=== PATIENT | male | born 1935 | race Hispanic/Latino ===

== ENCOUNTER 2020-04-18 21:04 | Inpatient (IN) | payer MEDICARE, OTHER ==
[~2020-04-18] VITALS: Ht 170.2 cm; Wt 55.5 kg
[2020-04-18 21:26] LABS: BASOPHILS % 0.2 % (0.0-1.0); HEMATOCRIT 41.8 % (38.2-49.6); HEMOGLOBIN 13.6 g/dL (14.0-18.0); LYMPHOCYTES # (AUTO) 1.9 (1.0-3.2); MEAN CORPUSCULAR HEMOGLOBIN 30.2 pg (28-32); MEAN CORPUSCULAR HGB CONC 32.5 g/dL (31-35); MEAN CORPUSCULAR VOLUME 92.7 fL (81-99); MONOCYTES % 12.1 % (4.4-11.3); NEUTROPHILS # (AUTO) 5.1 (2.1-6.9); NEUTROPHILS % 63.3 % (38.7-80.0); PLATELET COUNT 206 x10e3/uL (140-360); RED BLOOD COUNT 4.51 x10e6/uL (4.3-5.7); RED CELL DISTRIBUTION WIDTH 14.5 % (11.7-14.4)
--- NOTE | 2020-04-18 21:31 | Emergency Department Note ---
History of Present Illnes History of Present Illness Chief Complaint: COVID PUI History of Present Illness This is a 84 year old male who [facility] status. Per EMS nursing staff found pt down him down on the floor for unknown period of time. Patient unable to provide history Onset (how long ago): unknown Onset quality: unable to specify Progression: unable to specify Relieving factors: none Exacerbating factors: none Past Medical/Family History Physician Review I have reviewed the patient's past medical and family history. Any updates have been documented here. Past Medical History Unable to obtain PMH: Unable to obtain due to, altered mental status Other Medical History: Per EMS all of [place] has positive covid patients Social History Smoking Cessation: Unknown if ever smoked Review of Systems ROS Narrative Unable to obtain ROS: Unable to obtain due to, altered mental status Review of Systems Neurological: Reports as per HPI Endocrine: Reports no symptoms Physical Exam Related Data Allergies: Coded Allergies: No Known Allergies (Unverified , 04/18/20) Vital signs reviewed: Yes Physical Exam CONSTITUTIONAL Constitutional: Present well-developed, Present well-nourished HENT HENT: Present normocephalic, Present atraumatic, Present oropharynx clear/moist, Present nose normal HENT L/R: Present left ext ear normal, Present right ext ear normal EYES Eyes: Reports PERRL, Reports conjunctivae normal NECK Neck: Present ROM normal PULMONARY Pulmonary: Present effort normal, Present breath sounds normal CARDIOVASCULAR Cardiovascular: Present regular rhythm, Present heart sounds normal, Present capillary refill normal, Present normal rate GASTROINTESTINAL Abdominal: Present soft, Present nontender, Present bowel sounds normal GENITOURINARY Genitourinary: Present exam deferred SKIN Skin: Present warm, Present dry MUSCULOSKELETAL Musculoskeletal: Present ROM normal NEUROLOGICAL Neurological: Present alert, Present no gross motor or sensory deficits; Absent oriented x 3 PSYCHOLOGICAL Psychological: Present judgement normal Results Laboratory Laboratory Laboratory Tests Test 04/18/20 23:30 04/18/20 22:58 04/18/20 21:53 04/18/20 21:14 Urine Color Yellow (YELLOW) Urine Clarity Clear (CLEAR) Urine pH 6 (5 - 7) Urine Specific [place] 1.025 (1.010-1.025) Urine Protein Negative (NEGATIVE) Urine Glucose (UA) Negative (NEGATIVE) Urine Ketones 2+ (NEGATIVE) Urine Blood Negative (NEGATIVE) Urine Nitrite Negative (NEGATIVE) Urine Bilirubin Negative (NEGATIVE) Urine Urobilinogen 4.0 mg/dL (0.2 - 1) Urine Leukocyte Esterase Negative (NEGATIVE) Urine RBC 0-5 /HPF (0-5) Urine WBC 0-5 /HPF (0-5) Urine Epithelial Cells Few /LPF (NONE) Urine Amorphous Sediment Few (FEW) Urine Bacteria Few /HPF (NONE) Prothrombin Time 13.3 seconds (11.9-14.5) Prothromb Time International Ratio 0.96 White Blood Count 8.04 x10e3/uL (4.8-10.8) Red Blood Count 4.51 x10e6/uL (4.3-5.7) Hemoglobin 13.6 g/dL (14.0-18.0) Hematocrit 41.8 % (38.2-49.6) Mean Corpuscular Volume 92.7 fL (81-99) Mean Corpuscular Hemoglobin 30.2 pg (28-32) Mean Corpuscular Hemoglobin Concent 32.5 g/dL (31-35) Red Cell Distribution Width 14.5 % (11.7-14.4) Platelet Count 206 x10e3/uL (140-360) Neutrophils (%) (Auto) 63.3 % (38.7-80.0) Lymphocytes (%) (Auto) 24.0 % (18.0-39.1) Monocytes (%) (Auto) 12.1 % (4.4-11.3) Eosinophils (%) (Auto) 0.0 % (0.0-6.0) Basophils (%) (Auto) 0.2 % (0.0-1.0) Neutrophils # (Auto) 5.1 (2.1-6.9) Lymphocytes # (Auto) 1.9 (1.0-3.2) Monocytes # (Auto) 1.0 (0.2-0.8) Eosinophils # (Auto) 0.0 (0.0-0.4) Basophils # (Auto) 0.0 (0.0-0.1) Absolute Immature Granulocyte (auto 0.03 x10e3/uL (0-0.1) Sodium Level 137 mmol/L (136-145) Potassium Level 3.7 mmol/L (3.5-5.1) Chloride Level 109 mmol/L (98-107) Carbon Dioxide Level 22 mmol/L (22-29) Anion Gap 9.7 mmol/L (8-16) Blood Urea Nitrogen 31 mg/dL (7-26) Creatinine 1.01 mg/dL (0.72-1.25) Estimat Glomerular Filtration Rate > 60 ML/MIN (60-) BUN/Creatinine Ratio 31 (6-25) Glucose Level 91 mg/dL (74-118) Calcium Level 9.1 mg/dL (8.4-10.2) Total Bilirubin 0.5 mg/dL (0.2-1.2) Aspartate Amino Transf (AST/SGOT) 61 IU/L (5-34) Alanine Aminotransferase (ALT/SGPT) 27 IU/L (0-55) Alkaline Phosphatase 57 IU/L (40-150) Creatine Kinase 2352 IU/L (30-200) Creatine Kinase MB 3.70 ng/mL (0-5.0) Troponin I 0.049 ng/mL (0-0.300) Total Protein 6.4 g/dL (6.5-8.1) Albumin 3.3 g/dL (3.5-5.0) Globulin 3.1 g/dL (2.3-3.5) Albumin/Globulin Ratio 1.1 (0.8-2.0) Lab results reviewed: Yes Imaging Imaging results reviewed: Yes Impressions IMPRESSION: Mild left basilar atelectasis. Otherwise, no lung consolidation. Severe atherosclerotic calcification of coronary arteries. Assessment & Plan Medical Decision Making MDM 84-year-old male unable to provide history secondary to altered mental status sent to the ER after being found down per shelter staff. Patient with no focal neuro deficits on exam. CT brain done shows no acute findings. Patient noted to have elevated CPK was concerns of rhabdomyolysis. Patient admitted for monitoring and IV fluids. No concerns of infectious etiology at time of admission. Assessment & Plan Final Impression: (1) Rhabdomyolysis Depart Disposition: ADMITTED DELPHINEChelsea DO BRYAN Apr 18, 2020 21:30
[2020-04-18 21:39] LABS: ALANINE AMINOTRANSFERASE 27 IU/L (0-55); ALBUMIN 3.3 g/dL (3.5-5.0); ALBUMIN/GLOBULIN RATIO 1.1 (0.8-2.0); ALKALINE PHOSPHATASE 57 IU/L (40-150); ANION GAP 9.7 mmol/L (8-16); BLOOD UREA NITROGEN 31 mg/dL (7-26); BUN/CREATININE RATIO 31 (6-25); CALCIUM 9.1 mg/dL (8.4-10.2); CARBON DIOXIDE 22 mmol/L (22-29); CHLORIDE 109 mmol/L (98-107); CREATINE KINASE 2352 IU/L (30-200); CREATININE, SERUM 1.01 mg/dL (0.72-1.25); EST GLOMERULAR FILTRATION RATE > 60 ML/MIN (60-); GLUCOSE 91 mg/dL (74-118); POTASSIUM 3.7 mmol/L (3.5-5.1); SODIUM 137 mmol/L (136-145)
[2020-04-18] MEDS ORDERED: SODIUM CHLORIDE 0.9% 1000ML 1,000 ML IV ONE (21:45)
[2020-04-18 22:10] LABS: INR 0.96; PROTHROMBIN TIME 13.3 seconds (11.9-14.5)
--- NOTE | 2020-04-18 23:00 | Diagnostic Imaging Report ---
EXAM: CT Chest WITHOUT contrast INDICATION: ^[id number] ^0 ^WEAKNESS, FEVER COMPARISON: None TECHNIQUE: Chest was scanned utilizing a multidetector helical scanner from the lung apex through the level of the adrenal glands without administration of IV contrast. Absence of intravenous contrast decreases sensitivity for detection of lymphadenopathy and vascular pathology. Coronal and sagittal reformations were obtained. Routine protocol was performed. IV CONTRAST: None COMPLICATIONS: None RADIATION DOSE: Total DLP: 1301.63 mGy*cm Estimated effective dose: (DLP x 0.014 x size factor) mSv CTDIvol has been reviewed. It is below the limits set by the Radiation Protocol Committee (RPC). FINDINGS: LINES/ TUBES: None. LUNGS AND AIRWAYS: Respiratory motion limits evaluation. Mild left basilar atelectasis. Airways are normal. PLEURA: The pleural spaces are clear. HEART AND MEDIASTINUM: The thyroid gland is normal. No mediastinal, hilar or axillary lymphadenopathy. The heart is normal in size.. There is no pericardial effusion. There are significant atherosclerotic calcifications in the aorta and coronary arteries. Severe atherosclerotic calcification of coronary arteries. UPPER ABDOMEN: Unremarkable. BONES: Degenerative changes of thoracic spine. SOFT TISSUES: Unremarkable. IMPRESSION: Mild left basilar atelectasis. Otherwise, no lung consolidation. Severe atherosclerotic calcification of coronary arteries. Signed by: Dr. Arthur Frost MD on 04/18/2020 10:56 PM
[2020-04-18 23:02] LABS: CLARITY,URINE CLEAR (CLEAR); COLOR,URINE YELLOW (YELLOW); LEUKOCYTE ESTERASE ,URINE NEGATIVE (NEGATIVE); NITRITE,URINE NEGATIVE (NEGATIVE)
--- NOTE | 2020-04-18 23:02 | Diagnostic Imaging Report ---
Examination: CT head without contrast Clinical Indication: Altered mental status; weakness; confusion. Technique: Transaxial noncontrast images from the skull base through the vertex were obtained. Sagittal and coronal reformatted images were done. Dose modulation, iterative reconstruction, and/or weight based adjustment of the mA/kV was utilized to reduce the radiation dose to as low as reasonably achievable. Comparison: None. Findings: Scalp: No abnormalities. Bones: Intact. No fractures. No blastic or lytic lesions. Brain sulci: Moderate volume loss for patient's age. Ventricles: No hydrocephalus. Extra-axial space: No abnormalities. Parenchyma: There are confluent areas of low-attenuation within subcortical and periventricular white matter, nonspecific, but could represent microvascular ischemic disease. No masses, hemorrhage, or acute or chronic cortical based vascular insults. Suprasellar region: No abnormalities. Craniocervical junction: The foramen magnum is patent. No Chiari one malformation. Impression: 1. No acute intracranial finding. 2. Chronic microvascular ischemic change and volume loss. Signed by: Dr. Dilma Acharya M.D. on 04/18/2020 10:58 PM
[2020-04-18 23:03] LABS: BILIRUBIN,URINE NEGATIVE (NEGATIVE); KETONES,URINE 2+ (NEGATIVE); PROTEIN,URINE DIPSTICK NEGATIVE (NEGATIVE)
[2020-04-18 23:10] LABS: AMORPHOUS SEDIMENT,URINE FEW (FEW); BACTERIA,URINE FEW /HPF; EPITHELIAL CELLS,URINE FEW /LPF; RBC,URINE 0-5 /HPF (0-5); WBC,URINE (MAN) 0-5 /HPF (0-5)
[2020-04-19] VITALS (9 sets, daily range): BP systolic 120–128; BP diastolic 56–68
[2020-04-19] MEDS: SODIUM CHLORIDE 0.9% 1000ML 1,000 ML IV SCH ×4 (00:33→23:00)
--- NOTE | 2020-04-19 04:18 | NUR ---
Patient admitted to unit from ER. Patient transferred to bed. Call light within reach. Teaching provided on pain and fall/safety.
[2020-04-19] MEDS ORDERED: KEPPRA500 MG PO (05:09)
[2020-04-19] MEDS ORDERED: CALCIUM CARBON500 MG PO (05:09)
[2020-04-19] MEDS ORDERED: FINASTERIDE5 MG PO (05:09)
[2020-04-19] MEDS ORDERED: OLANZAPINE5 MG PO (05:09)
[2020-04-19] MEDS ORDERED: NAMENDA10 MG PO (05:09)
[2020-04-19] MEDS ORDERED: FLOMAX0.4 MG PO (05:09)
[2020-04-19] MEDS ORDERED: LOPRESSOR25 MG PO (05:09)
[2020-04-19] MEDS ORDERED: ARICEPT5 MG PO (05:09)
[2020-04-19] MEDS ORDERED: [UNRECOGNIZED DRUG - CODE] TOP (05:09)
[2020-04-19] MEDS ORDERED: ALPRAZOLAM1 MG PO (05:09)
--- NOTE | 2020-04-19 06:57 | NUR ---
Bedside and report and walking rounds completed with oncoming nurse. Patient in bed with call light within reach. No issues or concerns noted.
[2020-04-19 07:37] LABS: BASOPHILS % 0.2 % (0.0-1.0); HEMATOCRIT 35.9 % (38.2-49.6); HEMOGLOBIN 11.7 g/dL (14.0-18.0); LYMPHOCYTES # (AUTO) 1.6 (1.0-3.2); MEAN CORPUSCULAR HEMOGLOBIN 30.5 pg (28-32); MEAN CORPUSCULAR HGB CONC 32.6 g/dL (31-35); MEAN CORPUSCULAR VOLUME 93.7 fL (81-99); MONOCYTES # (AUTO) 0.7 (0.2-0.8); MONOCYTES % 12.1 % (4.4-11.3); NEUTROPHILS # (AUTO) 3.1 (2.1-6.9); NEUTROPHILS % 57.3 % (38.7-80.0); PLATELET COUNT 177 x10e3/uL (140-360); RED BLOOD COUNT 3.83 x10e6/uL (4.3-5.7); RED CELL DISTRIBUTION WIDTH 14.4 % (11.7-14.4)
[2020-04-19 07:55] LABS: ALANINE AMINOTRANSFERASE 22 IU/L (0-55); ALBUMIN 2.6 g/dL (3.5-5.0); ALKALINE PHOSPHATASE 45 IU/L (40-150); ANION GAP 9.5 mmol/L (8-16); BLOOD UREA NITROGEN 24 mg/dL (7-26); BUN/CREATININE RATIO 31 (6-25); CALCIUM 7.8 mg/dL (8.4-10.2); CARBON DIOXIDE 21 mmol/L (22-29); CHLORIDE 112 mmol/L (98-107); CREATININE, SERUM 0.77 mg/dL (0.72-1.25); EST GLOMERULAR FILTRATION RATE > 60 ML/MIN (60-); GLUCOSE 76 mg/dL (74-118); POTASSIUM 3.5 mmol/L (3.5-5.1); SODIUM 139 mmol/L (136-145)
[2020-04-19 08:19] LABS: CREATINE KINASE MB 3.1 ng/mL (0-5.0)
[2020-04-19] MEDS ORDERED: ONDANSETRON HCL INJ 2MG/ML 2ML 2 MG/ML VIAL IV PRN (14:00)
[2020-04-19] MEDS ORDERED: DOCUSATE SODIUM 100 MG CAP PO PRN (14:00)
[2020-04-19] MEDS ORDERED: ACETAMINOPHEN 325 MG TAB PO PRN (14:00)
[2020-04-19 16:27] LABS: CREATINE KINASE MB 3.2 ng/mL (0-5.0)
[2020-04-19] MEDS: LEVETIRACETAM 500 MG TAB PO SCH (18:10)
[2020-04-19] MEDS ORDERED: QUETIAPINE FUMARATE 25 MG TAB PO ONE (19:50)
--- NOTE | 2020-04-19 22:00 | NUR ---
Nursing can initiate 1:1, if patient continues be aggressive. patient has a temporary sitter now
[2020-04-19] MEDS: MEMANTINE 10 MG TAB PO SCH (22:08)
[2020-04-19] MEDS: DONEPEZIL HCL 5 MG TAB PO SCH (22:08)
[2020-04-20] VITALS (12 sets, daily range): BP systolic 112–192; BP diastolic 60–148
--- NOTE | 2020-04-20 02:08 | History and Physical ---
The patient was seen and evaluated approximately 1:30 p.m. this afternoon with the nursing staff. CHIEF COMPLAINT: Rhabdomyolysis. HISTORY OF PRESENT ILLNESS: Information currently being obtained from the nursing staff and chart. The patient is severely demented. He is currently at his baseline. We have confirmed this with the facility that he lives in. The patient was sent in due to a recent fall. This is an 84-year-old male, who has severe Alzheimer's dementia, lives in an assisted living facility, in which he came in after the facility states that he had a mechanical fall, they found him on the ground as what they report. They did not witness the fall. The patient came in, found to have rhabdomyolysis and was admitted for further evaluation and management. I am not able to obtain any other information with the patient due to his underlying mental state. His CK was elevated greater than 2300 on admission. IV fluids were initiated. The patient was seen and evaluated at bedside on the medical floor with the nursing staff. Currently seems to be at baseline with no other issues at this time. REVIEW OF SYSTEMS: Unable to obtain except he had a mechanical fall, verbalized by the facility that he lives in. ALLERGIES: NO KNOWN DRUG ALLERGIES. HOME MEDICATIONS: 1. Xanax. 2. Aricept. 3. Finasteride. 4. Keppra. 5. Namenda. 6. Lopressor. 7. Olanzapine. 8. Tamsulosin. PAST MEDICAL HISTORY: Severe Alzheimer's dementia, seizures, hypertension, behavior disturbances from his dementia, BPH. PAST SURGICAL HISTORY: Unable to obtain. FAMILY HISTORY: Unable to obtain. SOCIAL HISTORY: He lives in an assisted living facility. He has severe dementia, unable to obtain any information. PHYSICAL EXAMINATION: VITAL SIGNS: Temperature was 98, pulse 60, respiratory rate is 18, blood pressure 120/60, pulse ox 97% on room air. GENERAL: He is confused at baseline. PULMONARY: Clear to auscultation bilaterally. No wheezing, no rales, no rhonchi, no crackles appreciated. CARDIOVASCULAR: Positive S1 and S2. No murmurs, rubs, or gallops appreciated. ABDOMEN: Soft, nondistended, and nontender to palpation. Bowel sounds present. MUSCULOSKELETAL: Unable to assess. He is very agitated. NEUROLOGIC: Baseline dementia. He is agitated. SKIN: Intact. Warm to touch. Good cap refill. PSYCHIATRIC: He has baseline dementia with behavioral disturbances. EXTREMITIES: No edema. Good range of motion throughout. LABORATORY FINDINGS: Show white count 5.4, hemoglobin 9.2, hematocrit is 35, platelets of 177. Coagulation; PT 13, INR 0.96. Chemistry; sodium 139, potassium 3.5, chloride 112, bicarb 21, anion gap of 9.5, BUN 24, creatinine 0.77, glucose 76, calcium 7.8, total bilirubin 0.5, AST 50, ALT 22, alkaline phosphatase 75, CK was 2353 down trending now to 1615. Troponins were all negative. Albumin was 2.6. Urinalysis was 2+ ketones, everything else was negative. SEROLOGY: Coronavirus pending. MICROBIOLOGY: None. IMAGING STUDIES: Chest CT shows mild left atelectasis. Otherwise, no lung consolidation. Severe atherosclerotic calcifications in the coronary arteries. Brain CT shows no acute intracranial finding. Chronic microvascular ischemic change and volume loss. IMPRESSION: 1. Rhabdomyolysis. 2. Dementia with behavioral disturbances. 3. History of seizures. 4. Benign prostatic hypertrophy. PLAN: At this time, continue with aggressive IV fluid hydration for his rhabdomyolysis. Get a morning CK level including labs. Resume same home medications. Continue with Zyprexa for underlying dementia with behavioral disturbances. Continue with Aricept and Namenda. Psychiatry was consulted for behavioral disturbances. It seems after further discussion with the nurse at the assisted living facility, they are having a difficult time handling this patient due to his behavioral disturbances. I would consult with Psychiatry at this time to help assist in this case, so we can have a stable regimen to be discharged home with. His labs were stable. Continue with IV fluids. Lovenox for DVT prophylaxis. He is on a regular diet. MD BLANCA Fishman/MODL /[id number]
[2020-04-20] MEDS: ENOXAPARIN SOD INJ 40 MG/0.4 ML SYR SC SCH ×2 (03:25→16:23)
[2020-04-20 06:17] LABS: BASOPHILS % 0.1 % (0.0-1.0); EOSINOPHILS % 0.1 % (0.0-6.0); HEMATOCRIT 39.3 % (38.2-49.6); HEMOGLOBIN 12.8 g/dL (14.0-18.0); LYMPHOCYTES # (AUTO) 2.1 (1.0-3.2); LYMPHOCYTES % 31.3 % (18.0-39.1); MEAN CORPUSCULAR HEMOGLOBIN 31.9 pg (28-32); MEAN CORPUSCULAR HGB CONC 32.6 g/dL (31-35); MONOCYTES # (AUTO) 0.6 (0.2-0.8); NEUTROPHILS % 59.2 % (38.7-80.0); PLATELET COUNT 136 x10e3/uL (140-360); RED BLOOD COUNT 4.01 x10e6/uL (4.3-5.7); RED CELL DISTRIBUTION WIDTH 14.3 % (11.7-14.4)
[2020-04-20 06:40] LABS: ANION GAP 12.9 mmol/L (8-16); BLOOD UREA NITROGEN 17 mg/dL (7-26); BUN/CREATININE RATIO 22 (6-25); CALCIUM 8.3 mg/dL (8.4-10.2); CARBON DIOXIDE 19 mmol/L (22-29); CHLORIDE 113 mmol/L (98-107); CREATININE, SERUM 0.77 mg/dL (0.72-1.25); EST GLOMERULAR FILTRATION RATE > 60 ML/MIN (60-); GLUCOSE 66 mg/dL (74-118); POTASSIUM 3.9 mmol/L (3.5-5.1); SODIUM 141 mmol/L (136-145)
[2020-04-20] MEDS: SODIUM CHLORIDE 0.9% 1000ML 1,000 ML IV SCH ×3 (07:09→23:00)
--- NOTE | 2020-04-20 07:41 | Diagnostic Imaging Report ---
HIPS BILAT TWO VWS(+/- PELVIS) -6 radiographs HISTORY: Pain COMPARISON: None available. FINDINGS: No evidence of acute displaced fracture or dislocation. Mild degenerative changes of bilateral hip joints. There are also degenerative changes of lower lumbar spine and SI joints. Pelvic phleboliths. IMPRESSION: No evidence of acute displaced fracture or dislocation of the bilateral hips. If there is high clinical concern for fracture, CT can be obtained for further evaluation. Signed by: Dr. Arthur Frost MD on 04/20/2020 7:37 AM
--- NOTE | 2020-04-20 08:00 | NUR ---
positive for covid 19. Placed in isolation Sitter at bedside prn for his confusion ans history of falls
[2020-04-20] MEDS ORDERED: OLANZAPINE 5 MG TAB PO SCH (09:00)
[2020-04-20] MEDS: LEVETIRACETAM 500 MG TAB PO SCH ×2 (09:22→16:23)
[2020-04-20] MEDS: FINASTERIDE 5 MG TAB PO SCH (09:22)
[2020-04-20] MEDS: TAMSULOSIN HCL 0.4 MG CAP PO SCH (09:22)
[2020-04-20] MEDS: METOPROLOL TARTRATE 25 MG TAB PO SCH (09:50)
[2020-04-20] MEDS ORDERED: OLANZAPINE 5 MG TAB PO PRN (11:30)
[2020-04-20] MEDS: OLANZAPINE 5 MG TAB PO SCH ×2 (11:58→21:20)
--- NOTE | 2020-04-20 12:00 | NUR ---
Remailn stable, vss, has a productive cough with greenish phelgm. No other signs of covid19, resp wnl, not hypoxic. Will cont to monitor for new signs. He is more co operative this morning
--- NOTE | 2020-04-20 13:38 | NUR ---
infectious disease consultation Patient seen and examined chart reviewed Rhabdomyolysis. HISTORY OF PRESENT ILLNESS: Information currently being obtained from the nursing staff and chart. The patient is severely demented. He is currently at his baseline. We have confirmed this with the facility that he lives in. The patient was sent in due to a recent fall. This is an 84-year-old male, who has severe Alzheimer's dementia, lives in an assisted living facility, in which he came in after the facility states that he had a mechanical fall, they found him on the ground as what they report. They did not witness the fall. The patient came in, found to have rhabdomyolysis and was admitted for further evaluation and management. I am not able to obtain any other information with the patient due to his underlying mental state. His CK was elevated greater than 2300 on admission. IV fluids were initiated. The patient was seen and evaluated at bedside on the medical floor with the nursing staff. Currently seems to be at baseline with no other issues at this time. REVIEW OF SYSTEMS: Unable to obtain except he had a mechanical fall, verbalized by the facility that he lives in. ALLERGIES: NO KNOWN DRUG ALLERGIES. HOME MEDICATIONS: 1. Xanax. 2. Aricept. 3. Finasteride. 4. Keppra. 5. Namenda. 6. Lopressor. 7. Olanzapine. 8. Tamsulosin. PAST MEDICAL HISTORY: Severe Alzheimer's dementia, seizures, hypertension, behavior disturbances from his dementia, BPH. PAST SURGICAL HISTORY: Unable to obtain. FAMILY HISTORY: Unable to obtain. SOCIAL HISTORY: He lives in an assisted living facility. He has severe dementia, unable to obtain any information. PHYSICAL EXAMINATION: VITAL SIGNS: Temperature was 98, pulse 60, respiratory rate is 18, blood pressure 120/60, pulse ox 97% on room air. GENERAL: He is confused at baseline. PULMONARY: Clear to auscultation bilaterally. No wheezing, no rales, no rhonchi, no crackles appreciated. CARDIOVASCULAR: Positive S1 and S2. No murmurs, rubs, or gallops appreciated. ABDOMEN: Soft, nondistended, and nontender to palpation. Bowel sounds present. MUSCULOSKELETAL: Unable to assess. He is very agitated. NEUROLOGIC: Baseline dementia. He is agitated. SKIN: Intact. Warm to touch. Good cap refill. PSYCHIATRIC: He has baseline dementia with behavioral disturbances. EXTREMITIES: No edema. Good range of motion throughout. LABORATORY FINDINGS: Show white count 5.4, hemoglobin 9.2, hematocrit is 35, platelets of 177. Coagulation; PT 13, INR 0.96. Chemistry; sodium 139, potassium 3.5, chloride 112, bicarb 21, anion gap of 9.5, BUN 24, creatinine 0.77, glucose 76, calcium 7.8, total bilirubin 0.5, AST 50, ALT 22, alkaline phosphatase 75, CK was 2353 down trending now to 1615. Troponins were all negative. Albumin was 2.6. Urinalysis was 2+ ketones, everything else was negative. SEROLOGY: Coronavirus pending.
--- NOTE | 2020-04-20 16:35 | Consultation ---
DATE OF CONSULTATION: CHIEF COMPLAINT: Confusion and positive COVID-19 test. HISTORY OF PRESENT ILLNESS: The patient is an 84-year-old man. He has baseline dementia and is confused at baseline. He came from the nursing facility after a fall. He was found to have an elevated CPK and dehydration consistent with rhabdomyolysis. He also had a positive COVID test. He does have occasional cough, productive of discolored phlegm, but has not had fevers. There have been no complaints of shortness of breath. PAST SURGICAL HISTORY: Not obtainable. PAST MEDICAL HISTORY: 1. Dementia. 2. Hypertension. 3. Benign prostatic hypertrophy. 4. Prior seizure disorder. SOCIAL HISTORY: The patient lives at assisted living. FAMILY HISTORY: Noncontributory. ALLERGIES: NO KNOWN DRUG ALLERGIES. REVIEW OF SYSTEMS: No fevers. There is no headache. He has no chest pain. He is not complaining of dyspnea. He has no abdominal pain. There is no nausea or vomiting. He does have confusion. PHYSICAL EXAMINATION: VITAL SIGNS: The blood pressure is 141/74, pulse is 69, saturation is 99%. HEENT: No facial swelling or erythema. The oropharynx normal. LYMPHATIC: No submandibular, cervical, or supraclavicular adenopathy. CARDIAC: Regular rate and rhythm with normal S1, S2. LUNGS: Auscultation of lungs reveals crackles at the bases. There is no wheezing. ABDOMEN: Soft, nontender. There is no rebound or guarding. EXTREMITIES: No leg edema or calf tenderness. There is no cyanosis or clubbing. SKIN: No rashes. NEUROLOGICAL: The patient to be confused. LABORATORY DATA: BUN to creatinine ratio is 17 to 0.77. The CO2 is 19 and the chloride is 113. Sodium is 141, the potassium is 3.9. The CPK is 1419. Albumin is 2.6. RADIOGRAPHIC DATA: CT scan of the chest shows some mild left basilar atelectasis. IMPRESSION: 1. Coronavirus disease-19 infection. 2. Acute kidney injury. 3. Rhabdomyolysis. 4. Metabolic encephalopathy. PLAN: 1. Continue IV hydration. Avoid normal saline which may worsen the hyperchloremia. 2. Continue to monitor creatinine. 3. The patient denies a sitter. 4. No specific therapy is required for his COVID-19 infection at this time. He is not on oxygen. Therefore, neither remdesivir nor dexamethasone is indicated. MD LEV Mao/WILL /[id number]
--- NOTE | 2020-04-20 17:23 | NUR ---
Sitting in chair at bedside having dinner with spa experience coordinator watching him for safety. No hypoxia or elevated temp. denies discomfort or fatigue.
--- NOTE | 2020-04-20 17:36 | Progress Note ---
DATE: SUBJECTIVE: Mr. Bhandari who is an 84-year-old male, who [facility], severe dementia, comes in because he was found on the floor. There was no fever, no chills. He came to emergency room IV fluids, and seems to be better. The patient with no complaints. He is not on oxygen. PHYSICAL EXAMINATION: GENERAL: He is currently alert, oriented. VITAL SIGNS: Stable, currently afebrile. HEENT: He is not icteric. NECK: Supple. CHEST: Clear. HEART: S1, S2. ABDOMEN: Soft. LABORATORY DATA: His COVID-19 test came back positive. IMPRESSION: Coronavirus disease-19. I am not so sure if it is acute or present past infection. The patient [facility] in [facility], he is currently symptomatic now. We will do isolation for 10 days. No need for treatment. Agree with IV fluid. We will follow. MD BRIGITTE Soriano/MODL /[id number]
[2020-04-20] MEDS ORDERED: QUETIAPINE FUMARATE 25 MG TAB PO SCH (21:00)
[2020-04-20] MEDS: DONEPEZIL HCL 5 MG TAB PO SCH (21:20)
[2020-04-20] MEDS: MEMANTINE 10 MG TAB PO SCH (21:20)
--- NOTE | 2020-04-20 21:20 | NUR ---
Pt removed IV. New #20 started in right arm without any difficulties. Pt alert and disoriented x 3. No needs at this time. Call light within reach. Will continue to monitor.
--- NOTE | 2020-04-20 22:26 | Consultation ---
DATE OF CONSULTATION: 04/20/2020 Psychiatric Consultation The patient evaluated, events noted. REASON FOR CONSULTATION: Evaluate the patient's agitation and dementia. HISTORY OF PRESENT ILLNESS: The patient is an 84-year-old male admitted to the hospital for rhabdo. Psychiatric consultation was called to evaluate the patient's psychosis. As per medical record, the patient has a history of rhabdo and dementia. He was living in assisted living facility, came to the hospital after a fall. As per nursing staff, who spoke to the family members, they report the patient is currently at baseline. The patient was agitated yesterday, was doing much better today. Yesterday he was , agitated. Upon evaluation today, the patient was found to be in the isolation room for MAURICIO. He is alert, awake, and oriented to self and place, but does not know the year. He is not really answering questions meaningfully, even with the per diem interpreter helping out. He is calm at this time, no agitation. He is not lethargic. As per staff, he is eating and sleeping well. PAST PSYCHIATRIC HISTORY: He has history of dementia and seizures, details unknown. FAMILY HISTORY: Unknown. SOCIAL HISTORY: The patient was living in assisted living facility. MENTAL STATUS EXAMINATION: The patient is male, alert, awake, and oriented to self and place. His mood is fair. Denies any suicidal or homicidal ideation. He denies any hallucination. Thought process is loose. Insight and judgment are impaired. Psychomotor state is calm and passive. Memory appears to be grossly impaired. CURRENT MEDICATIONS: 1. Lovenox. 2. Keppra. 3. Sodium chloride. 4. Zyprexa 5 mg p.o. daily. 5. Metoprolol. 6. Flomax. 7. Proscar. 8. Namenda 10 mg p.o. at bedtime. 9. Aricept 10 mg p.o. at bedtime. 10. Acetaminophen. 11. Docusate. 12. Ondansetron. LABORATORY DATA: Current labs; WBC 6.81, RBC 4.01, hemoglobin 12.8, hematocrit 39.3, and platelets 136. Sodium 141, potassium 3.9, chloride 103, carbon dioxide 19, BUN 17, and creatinine 0.77. ASSESSMENT: 1. Unspecified psychosis. 2. Unspecified dementia with behavior disturbances. PLAN: 1. Adjust the Zyprexa from 5 mg p.o. daily to 2.5 mg p.o. q.12 hours. 2. Keppra for seizure. 3. Continue Namenda 10 mg p.o. at bedtime. 4. Continue Aricept 10 mg p.o. at bedtime. 5. Zyprexa 2.5 mg p.o. q.6 hours as needed. 6. Add Haldol 2 mg IM q.6 hours as needed. 7. Ativan 0.5 mg p.o. q.6 hours as needed. 8. Monitor for agitation. Thank you for this consultation. MD DIONNA Garcia/WILL /[id number]
--- NOTE | 2020-04-20 22:40 | NUR ---
Pt transferred to room 177 via wheelchair. Pt alert and stable at time of departure. Report given to CORNELIO Yuen. Care transferred.
--- NOTE | 2020-04-20 22:50 | NUR ---
Patient received from [facility] via wheelchair. Patient is alert with confusion. Transferred to bed with assistance. Bed alarm on, bed to lowest position, side rails up. Sitter at bedside.
[2020-04-21] VITALS (9 sets, daily range): BP systolic 110–151; BP diastolic 66–99
--- NOTE | 2020-04-21 00:01 | Progress Note ---
DATE: 04/20/2020 Medicine Progress Note SUBJECTIVE: The patient was found to have coronavirus positive. Yesterday, his test was still pending. He is now in the COVID unit. He is demented. He requires a sitter at bedside. He spits at people. LABORATORY FINDINGS: Show white count 6.8, hemoglobin 12.8, hematocrit 39, platelets of 136. Chemistry reviewed, stable. His CK improved from 14 to 18. Coronavirus positive. IMAGING STUDIES: Hip x-ray shows no evidence of any acute displaced fracture or dislocation of the bilateral hips. PHYSICAL EXAMINATION: VITAL SIGNS: Temperature is 97.5, pulse 83, respiratory rate is 23, blood pressure was 141/74, pulse ox 100% on room air. GENERAL: He is confused, demented at baseline. PULMONARY: Clear to auscultation bilaterally. No wheezing, rales, or rhonchi. CARDIOVASCULAR: Positive S1 and S2. No murmurs, rubs, or gallops. GI: Abdomen is soft, nondistended, nontender to palpation. Bowel sounds are present. MUSCULOSKELETAL: Unable to assess. The patient is non-cooperative. NEUROLOGIC: Unable to assess. Baseline dementia. He is not cooperative. SKIN: Intact, warm to touch. Good cap refill. EXTREMITIES: No edema appreciated. IMPRESSION: 1. Rhabdomyolysis, now downtrending secondary to mechanical fall. 2. Dementia with behavioral disturbances. 3. History of seizures. 4. Benign prostatic hyperplasia. 5. Coronavirus pneumonia. PLAN: At this time, continue with IV fluids. Get repeat CK in the morning. Psychiatry consulted for behavioral disturbances. He is on Zyprexa as well as Aricept and Namenda. ID and Pulmonary have been consulted for his coronavirus. He is on room air, doing well. Lovenox for DVT prophylaxis. MD BLANCA Fishman/WILL /[id number]
[2020-04-21 05:42] LABS: HEMATOCRIT 32.5 % (38.2-49.6); HEMOGLOBIN 10.6 g/dL (14.0-18.0); LYMPHOCYTES # (AUTO) 1.5 (1.0-3.2); LYMPHOCYTES % 32.9 % (18.0-39.1); MEAN CORPUSCULAR HEMOGLOBIN 30.2 pg (28-32); MEAN CORPUSCULAR HGB CONC 32.6 g/dL (31-35); MEAN CORPUSCULAR VOLUME 92.6 fL (81-99); MONOCYTES # (AUTO) 0.4 (0.2-0.8); MONOCYTES % 8.4 % (4.4-11.3); NEUTROPHILS # (AUTO) 2.6 (2.1-6.9); NEUTROPHILS % 58.5 % (38.7-80.0); PLATELET COUNT 165 x10e3/uL (140-360); RED BLOOD COUNT 3.51 x10e6/uL (4.3-5.7); RED CELL DISTRIBUTION WIDTH 13.7 % (11.7-14.4)
[2020-04-21] MEDS: SODIUM CHLORIDE 0.9% 1000ML 1,000 ML IV SCH ×3 (05:57→20:10)
[2020-04-21 06:01] LABS: ANION GAP 8.4 mmol/L (8-16); BLOOD UREA NITROGEN 14 mg/dL (7-26); BUN/CREATININE RATIO 20 (6-25); CALCIUM 7.9 mg/dL (8.4-10.2); CARBON DIOXIDE 20 mmol/L (22-29); CHLORIDE 113 mmol/L (98-107); CREATINE KINASE 747 IU/L (30-200); EST GLOMERULAR FILTRATION RATE > 60 ML/MIN (60-); GLUCOSE 88 mg/dL (74-118); POTASSIUM 3.4 mmol/L (3.5-5.1); SODIUM 138 mmol/L (136-145)
[2020-04-21] MEDS: FINASTERIDE 5 MG TAB PO SCH (08:12)
[2020-04-21] MEDS: TAMSULOSIN HCL 0.4 MG CAP PO SCH (08:12)
[2020-04-21] MEDS: OLANZAPINE 5 MG TAB PO SCH ×2 (08:12→20:09)
[2020-04-21] MEDS: LEVETIRACETAM 500 MG TAB PO SCH ×2 (08:12→16:19)
[2020-04-21] MEDS: METOPROLOL TARTRATE 25 MG TAB PO SCH (08:12)
[2020-04-21] MEDS: LORAZEPAM INJ 2 MG/ML VIAL IM PRN ×3 (08:12→22:00)
[2020-04-21] MEDS: HALOPERIDOL LACTATE 5 MG/ML VIAL IM PRN ×3 (08:12→22:00)
[2020-04-21] MEDS ORDERED: POTASSIUM BICARBONATE/CIT AC 20 MEQ TABLET.EFF PO ONE (10:30)
--- NOTE | 2020-04-21 11:44 | Progress Note ---
DATE: Psychiatric Progress Note SUBJECTIVE: The patient is evaluated and events noted. Upon evaluation today, the patient is found to be lying on his bed, currently resting. He is arousable, but he is confused. He is not able to participate for this assessment today. Collateral information is obtained from his staff who reported that patient has been getting agitated especially at night and confused. He is requiring p.r.n. IM medications that are working fairly well to control his behavior for now. MENTAL STATUS EXAMINATION: The patient is an elderly male who is currently lying on his bed. He is currently resting. He is arousable, but he is not able to participate for a complete mental status examination at this time. DIAGNOSES: 1. Unspecified psychosis. 2. Unspecified dementia with behavioral disturbances. PLAN OF CARE: 1. Continue Aricept. 2. Continue Haldol 2 mg IM q.6 p.r.n. for agitation. 3. Continue IM Ativan 0.5 mg q.6 p.r.n. for anxiety. 4. Adjust Namenda to 5 mg p.o. b.i.d. 5. Continue Zyprexa 2.5 mg p.o. q.12 hours. 6. Continue Zyprexa 2.5 mg p.o. q.6 p.r.n. for agitation. 7. Monitor for agitation. Freya Anders MD [facility]/MODL /[id number]
[2020-04-21] MEDS: MEMANTINE 10 MG TAB PO SCH ×2 (14:11→20:09)
--- NOTE | 2020-04-21 15:05 | Progress Note ---
DATE: SUBJECTIVE: Mr. Bhandari is doing better. No new complaint. PHYSICAL EXAMINATION: GENERAL: He is currently alert, oriented. VITAL SIGNS: Stable, currently afebrile. HEENT: He is not icteric. NECK: Supple. CHEST: Clear. HEART: S1, S2. ABDOMEN: Soft. IMPRESSION: Rhabdomyolysis, dehydration, dementia, seizure disorder, COVID-19. The patient is stable from Infectious Disease point of view and keep in isolation for 10 days . MD BRIGITTE Soriano/MODChely /[id number]
--- NOTE | 2020-04-21 16:01 | Progress Note ---
DATE: SUBJECTIVE: The patient feels better. He is afebrile. He is still on nasal cannula at 2 L. He has some confusion. PHYSICAL EXAMINATION: VITAL SIGNS: Stable. HEENT: No facial swelling or erythema. CARDIAC: Regular rate and rhythm with normal S1, S2. LUNGS: Auscultation of lungs reveals rhonchorous breath sounds bilaterally. There is no wheezing. ABDOMEN: Soft, nontender. There is no rebound or guarding. EXTREMITIES: No leg edema or calf tenderness. There is no cyanosis or clubbing. SKIN: No rashes. NEUROLOGICAL: No focal abnormalities. LABORATORY DATA: Sodium is 138, potassium is 3.4 and the carbon dioxide is 20. BUN to creatinine ratio is normal. White blood cell count is 4.4 and hemoglobin is 10.6. The platelet count is 165. IMPRESSION: 1. Coronavirus disease-19 infection and viral pneumonia. 2. Acute kidney injury. 3. Rhabdomyolysis. 4. Metabolic encephalopathy. PLAN: 1. Continue current hydration and monitor fluid status. 2. Continue to monitor creatinine and electrolytes. 3. Continue to monitor agitation and mental status. Michael Mae MD [facility]/MODL /[id number]
[2020-04-21] MEDS: ENOXAPARIN SOD INJ 40 MG/0.4 ML SYR SC SCH (16:19)
--- NOTE | 2020-04-21 19:15 | NUR ---
sbar report received from dayshift RN, patient remains confused, combative at times, sitter 1;[address] for safety, skin warm dry, incontinence care given prior to end of shift, room air, IV INTACT NO S/SX OF INFILTRATION NOTED, CALL LIGHT WITHIN REACH
[2020-04-21] MEDS: DONEPEZIL HCL 5 MG TAB PO SCH (20:09)
--- NOTE | 2020-04-21 20:30 | NUR ---
PT REMAINS CONFUSED, ANDORRAN SPEAKING ONLY, LIQUID YEAST SUPERVISOR USED TO ATTEMPT TO COMMUNICATE KEEPS SAYS "LEAVE ME ALONE", WITH PROMPTING SCHEDULE MEDICATION GIVEN PO W/O DIFFICULTY, INCONTINENCE CARE GIVEN AT THAT TIME, TELEMETRY IN PLACE, LEADS IN PLACE, SITTER AT BEDSIDE ASSISTING WITH CARE, BED IN LOWEST POSITION, SKIN WARM DRY INTACT, ALL PEDAL PULSES(+), FOAM DRESSING APPLIED TO COCCYX AREA TO PREVENT SKIN BREAKDOWN, REPOSITIONED FOR COMFORT
--- NOTE | 2020-04-21 23:53 | Progress Note ---
DATE: 04/21/2020 Medicine Progress Note SUBJECTIVE: The patient is at his baseline. He is very combative from his baseline dementia. LABORATORY FINDINGS: Show CBC stable. Chemistry reviewed, stable. CK 747, potassium is 3.4 replaced accordingly. MICROBIOLOGY: None. IMAGING STUDIES: None. PHYSICAL EXAMINATION: VITAL SIGNS: Temperature is 99.1, pulse 70, respiratory rate 21, blood pressure 151/99, pulse ox 94% on room air. GENERAL: He is confused on examination at baseline. PULMONARY: Clear to auscultation bilaterally. No wheezing, rales, or rhonchi. No crackles appreciated. CARDIOVASCULAR: Positive S1 and S2. No murmurs, rubs, or gallops. GI: Abdomen is soft, nondistended, nontender to palpation. Bowel sounds are present. MUSCULOSKELETAL: Unable to assess. He is not cooperative. NEUROLOGIC: Unable to assess. Not cooperative. PSYCHIATRIC: Baseline dementia. IMPRESSION: 1. Rhabdomyolysis, now downtrending secondary to mechanical fall. 2. Dementia with behavioral disturbances. 3. History of seizures. 4. Benign prostatic hyperplasia. 5. Coronavirus pneumonia, asymptomatic. PLAN: At this time, continue with IV fluids. Repeat CK in the morning. Psychiatry consulted for his behavior disturbances and he is currently on antipsychotic therapy. ID and Pulmonary are following. Once his CK is improved, he could potentially be discharged back to the facility he came from. Lovenox for DVT prophylaxis. MD BLANCA Fishman/MODL /[id number]
[2020-04-22] VITALS (8 sets, daily range): BP systolic 128–141; BP diastolic 59–85
[2020-04-22 03:38] LABS: BLOOD UREA NITROGEN 10 mg/dL (7-26); BUN/CREATININE RATIO 13 (6-25); CALCIUM 8.7 mg/dL (8.4-10.2); CARBON DIOXIDE 20 mmol/L (22-29); CHLORIDE 111 mmol/L (98-107); CREATINE KINASE 588 IU/L (30-200); CREATININE, SERUM 0.78 mg/dL (0.72-1.25); EST GLOMERULAR FILTRATION RATE > 60 ML/MIN (60-); GLUCOSE 81 mg/dL (74-118); SODIUM 140 mmol/L (136-145)
[2020-04-22] MEDS: SODIUM CHLORIDE 0.9% 1000ML 1,000 ML IV SCH ×2 (08:56→14:30)
[2020-04-22] MEDS: LEVETIRACETAM 500 MG TAB PO SCH ×2 (08:56→17:19)
[2020-04-22] MEDS: TAMSULOSIN HCL 0.4 MG CAP PO SCH (08:56)
[2020-04-22] MEDS: MEMANTINE 10 MG TAB PO SCH ×2 (08:59→21:27)
[2020-04-22] MEDS: METOPROLOL TARTRATE 25 MG TAB PO SCH (08:59)
[2020-04-22] MEDS: OLANZAPINE 5 MG TAB PO SCH ×2 (08:59→21:27)
[2020-04-22] MEDS: FINASTERIDE 5 MG TAB PO SCH (08:59)
--- NOTE | 2020-04-22 12:14 | Progress Note ---
DATE: SUBJECTIVE: Mr. Bhandari is confused. Does not seem to be in acute distress. OBJECTIVE: VITAL SIGNS: Stable, afebrile. HEENT: He is not icteric. NECK: Supple. CHEST: Clear. HEART: S1 and S2. ABDOMEN: Soft. Bowel sounds present. EXTREMITIES: No edema. SKIN: No rash. IMPRESSION: Rhabdomyolysis, dehydration, dementia, history of seizure. Stable from Infectious Disease point of view, can be discharged home. COVID-19, upper respiratory positive PCR not sure if acute or chronic. We just need to be on safe side since first time we diagnosed him 10 days of isolation. No need for treatment, could be discharged back to the care home. MD BRIGITTE Soriano/MODL /[id number]
[2020-04-22] MEDS: ENOXAPARIN SOD INJ 40 MG/0.4 ML SYR SC SCH (17:19)
--- NOTE | 2020-04-22 19:51 | Progress Note ---
DATE: 04/22/2020 Medicine Progress Note SUBJECTIVE: The patient is at his baseline demented. He does fight and argue a lot. Occasion is very aggressive, but much improved. PHYSICAL EXAMINATION: VITAL SIGNS: Temperature is 98.8, pulse 71, respirations is 20, blood pressure 120/59, and pulse ox 98% on room air. GENERAL: He is awake, alert. He is demented aggressive occasionally. PULMONARY: Clear to auscultation bilaterally. No wheezing, rales, or rhonchi. No crackles appreciated. CARDIOVASCULAR: Positive S1, S2. No murmurs, rubs, or gallops. ABDOMEN: Soft, nondistended, nontender to palpation. Bowel sounds present. MUSCULOSKELETAL: Unable to assess. Noncooperative. NEUROLOGIC: Unable to assess. Noncooperative. PSYCHIATRIC: Baseline dementia. LABORATORY FINDINGS: Show white count 4.4, hemoglobin 10.6, hematocrit 32, and platelets of 165. Chemistry; sodium 140, potassium 4.0, chloride 111, bicarb 20, anion gap of 13, BUN is 10, creatinine is 0.78, glucose is 81, calcium is 8.7. CK is 588. IMAGING STUDIES: Nothing new. IMPRESSION: 1. Rhabdomyolysis, now downtrending secondary mechanical fall. 2. Dementia with behavioral disturbances. 3. History of seizures. 4. Benign prostatic hypertrophy. 5. Coronavirus pneumonia, asymptomatic. PLAN: At this time, stop IV fluids. CK is much improved. Continue with regular diet, regular hydration. He has received antipsychotics due to his behavior from his dementia. ID, Pulmonary, and Psychiatry consulted. Lovenox for DVT prophylaxis. [facility] back to [facility] on Friday. MD BLANCA Fishman/MODL /[id number]
[2020-04-22] MEDS: DONEPEZIL HCL 5 MG TAB PO SCH (21:27)
--- NOTE | 2020-04-22 21:30 | NUR ---
Repositioned.diaper changed.stable condition.sitter with the patient.
[2020-04-22] MEDS: LORAZEPAM INJ 2 MG/ML VIAL IM PRN (23:07)
[2020-04-23] VITALS (7 sets, daily range): BP systolic 120–143; BP diastolic 52–86
--- NOTE | 2020-04-23 00:20 | NUR ---
Patient is resting in the bed.sitter with the patient.
--- NOTE | 2020-04-23 03:37 | NUR ---
spoke with lab concerning plasma and when it will be ready, states he has not heard from blood blank. requested he call blood bank and see when we would be receiving it.
--- NOTE | 2020-04-23 07:00 | NUR ---
Spoke to the laborer sawmill for three times regarding plasma.said not ready yet.Report given to oncoming rn.stable condition.sitter with patient.
[2020-04-23] MEDS: TAMSULOSIN HCL 0.4 MG CAP PO SCH (13:11)
[2020-04-23] MEDS: LEVETIRACETAM 500 MG TAB PO SCH ×2 (13:11→17:28)
[2020-04-23] MEDS: OLANZAPINE 5 MG TAB PO SCH ×2 (13:12→21:00)
[2020-04-23] MEDS: METOPROLOL TARTRATE 25 MG TAB PO SCH (13:12)
[2020-04-23] MEDS: FINASTERIDE 5 MG TAB PO SCH (13:12)
[2020-04-23] MEDS: MEMANTINE 10 MG TAB PO SCH ×2 (13:12→21:32)
--- NOTE | 2020-04-23 13:19 | NUR ---
DR Dickerson called to verified the Plasma order @ [id number]. did not order plasma for this pt . Entry error occurred. C nurse, cemetery workers supervisor and Lab notified.
[2020-04-23] MEDS: ENOXAPARIN SOD INJ 40 MG/0.4 ML SYR SC SCH (17:28)
--- NOTE | 2020-04-23 20:00 | Progress Note ---
DATE: SUBJECTIVE: The patient still has intermittent confusion. He is not having fevers. PHYSICAL EXAMINATION: VITAL SIGNS: Blood pressure is 143/76, saturation is 97%, pulse is 90. HEENT: Shows no facial swelling or erythema. LYMPHATIC: Shows no submandibular, cervical, or supraclavicular adenopathy. CARDIAC: Reveals regular rate and rhythm with normal S1, S2. LUNGS: Auscultation of lungs reveals rhonchorous breath sounds bilaterally. There is no wheezing. ABDOMEN: Soft and nontender. There is no rebound or guarding. EXTREMITIES: Shows no leg edema or calf tenderness. There is no cyanosis or clubbing. SKIN: Shows no rashes. LABORATORY DATA: Hemoglobin is 10.6 and white blood cell count 4.4, the platelet count is 165. BUN to creatinine ratio is 10 to 0.78. Carbon dioxide is 20. Other electrolytes are within normal limits. IMPRESSION: 1. Metabolic encephalopathy. 2. COVID-19 and viral pneumonia. 3. Acute kidney injury. PLAN: 1. Continue with sitter. 2. Continue to monitor mental status. 3. Continue to monitor creatinine and electrolytes. Michael Mae MD [facility]/MODL /[id number]
--- NOTE | 2020-04-23 20:50 | Progress Note ---
DATE: 04/23/2020 Medicine Progress Note SUBJECTIVE: The patient is still at baseline. He has baseline dementia with no issues. No overnight events. The patient is doing well today with no complaints. Nursing staff discussed case with them. PHYSICAL EXAMINATION: VITAL SIGNS: Temperature is 97.3, pulse 90, respiratory rate is 17, blood pressure 143/76, pulse ox 97% on room air. GENERAL: He is alert. He is awake. He is confused at baseline from his dementia. PULMONARY: Clear to auscultation bilaterally. No wheezing, rales, or rhonchi. No crackles appreciated. He is now on nasal cannula. CARDIOVASCULAR: Positive S1 and S2. No murmurs, rubs, or gallops appreciated. ABDOMEN: Soft, nondistended, nontender to palpation. Bowel sounds present. MUSCULOSKELETAL: Unable to assess. NEUROLOGIC: Unable to assess. PSYCHIATRIC: He has baseline dementia. LABORATORY FINDINGS: Show white count 4.4, hemoglobin 10.6, hematocrit is 32.5, and platelets of 165. Coagulation; PT 13, INR 0.96. Chemistry; sodium 140, potassium 4, chloride 111, bicarb 20, anion gap of 13, BUN is 10, creatinine is 0.78. IMAGING STUDIES: None. IMPRESSION: 1. Rhabdomyolysis, now resolved. 2. Dementia with behavioral disturbances. 3. History of seizures. 4. Benign prostatic hypertrophy. 5. Coronavirus pneumonia, asymptomatic. PLAN: At this time, continue with same plan of care. He is normal. Continue with regular diet, regular hydration. IV fluids discontinued. Get a.m. labs. The patient is much more calm now with antipsychotics given. Consultants; ID, Pulmonary, and Psychiatry consulted. Lovenox for DVT prophylaxis. Plan to discharge tomorrow. MD BLANCA Fishman/MODL /[id number]
[2020-04-23] MEDS: DONEPEZIL HCL 5 MG TAB PO SCH (21:31)
--- NOTE | 2020-04-23 22:30 | NUR ---
HAD A BOWEL MOVEMENT.BED BATH GIVEN.NO PAIN VOICED.SITTER WITH PATIENT.NOT AGITATED.RESTING NOW.
[2020-04-24 00:10] VITALS: BP 118/84
[2020-04-24 04:18] VITALS: BP 108/61
--- NOTE | 2020-04-24 05:00 | NUR ---
Blood lian and sent to the lab.pt tolerated well.
[2020-04-24 05:38] LABS: ANION GAP 13.6 mmol/L (8-16); BLOOD UREA NITROGEN 15 mg/dL (7-26); BUN/CREATININE RATIO 19 (6-25); CALCIUM 8.8 mg/dL (8.4-10.2); CARBON DIOXIDE 19 mmol/L (22-29); CHLORIDE 108 mmol/L (98-107); CREATININE, SERUM 0.79 mg/dL (0.72-1.25); EST GLOMERULAR FILTRATION RATE > 60 ML/MIN (60-); GLUCOSE 85 mg/dL (74-118); POTASSIUM 3.6 mmol/L (3.5-5.1); SODIUM 137 mmol/L (136-145)
--- NOTE | 2020-04-24 07:00 | NUR ---
Report given to oncoming Rn.stable condition.
--- NOTE | 2020-04-24 07:37 | NUR ---
infectious disease progress note Date for April 23 Patient was seen and examined chart reviewed discussed with medical team Patient is basically unchanged Comfortable and confused Vitals stable afebrile The patient is still at baseline. He has baseline dementia with no issues. No overnight events. The patient is doing well today with no complaints. Nursing staff discussed case with them. PHYSICAL EXAMINATION: VITAL SIGNS: Temperature is 97.3, pulse 90, respiratory rate is 17, blood pressure 143/76, pulse ox 97% on room air. GENERAL: He is alert. He is awake. He is confused at baseline from his dementia. PULMONARY: Clear to auscultation bilaterally. No wheezing, rales, or rhonchi. No crackles appreciated. He is now on nasal cannula. CARDIOVASCULAR: Positive S1 and S2. No murmurs, rubs, or gallops appreciated. ABDOMEN: Soft, nondistended, nontender to palpation. Bowel sounds present. MUSCULOSKELETAL: Unable to assess. NEUROLOGIC: Unable to assess. PSYCHIATRIC: He has baseline dementia. LABORATORY FINDINGS: Show white count 4.4, hemoglobin 10.6, hematocrit is 32.5, and platelets of 165. Coagulation; PT 13, INR 0.96. Chemistry; sodium 140, potassium 4, chloride 111, bicarb 20, anion gap of 13, BUN is 10, creatinine is 0.78. IMAGING STUDIES: None. IMPRESSION: 1. Rhabdomyolysis, now resolved. 2. Dementia with behavioral disturbances. 3. History of seizures. 4. Benign prostatic hypertrophy. 5. Coronavirus pneumonia, asymptomatic. Discharge planning noted
--- NOTE | 2020-04-24 07:38 | NUR ---
infectious disease progress note Patient is alert but confused no new problems Events noted Physical examination is unchanged The patient is still at baseline. He has baseline dementia with no issues. No overnight events. The patient is doing well today with no complaints. Nursing staff discussed case with them. PHYSICAL EXAMINATION: VITAL SIGNS: TStable otherwise GENERAL: He is alert. He is awake. He is confused at baseline from his dementia. PULMONARY: Clear to auscultation bilaterally. No wheezing, rales, or rhonchi. No crackles appreciated. He is now on nasal cannula. CARDIOVASCULAR: Positive S1 and S2. No murmurs, rubs, or gallops appreciated. ABDOMEN: Soft, nondistended, nontender to palpation. Bowel sounds present. MUSCULOSKELETAL: Unable to assess. NEUROLOGIC: Unable to assess. PSYCHIATRIC: He has baseline dementia. LABORATORY FINDINGS: Show white count 4.4, hemoglobin 10.6, hematocrit is 32.5, and platelets of 165. Coagulation; PT 13, INR 0.96. Chemistry; sodium 140, potassium 4, chloride 111, bicarb 20, anion gap of 13, BUN is 10, creatinine is 0.78. IMAGING STUDIES: None. IMPRESSION: 1. Rhabdomyolysis, now resolved. 2. Dementia with behavioral disturbances. 3. History of seizures. 4. Benign prostatic hypertrophy. 5. Coronavirus pneumonia, asymptomatic. discharge planning as ordered patient is noninfectious 10 days post diagnosis
[2020-04-24 08:00] VITALS: BP 118/71
--- NOTE | 2020-04-24 08:35 | NUR ---
PT IS FROM [facility], NURSE INQUIRED ABOUT RETURN, PROVIDE CLINICALS IN A PACKET AND SEND BACK TO FACILITY, NO REPORT NEEDED
[2020-04-24] MEDS: LEVETIRACETAM 500 MG TAB PO SCH ×2 (10:41→17:48)
[2020-04-24] MEDS: TAMSULOSIN HCL 0.4 MG CAP PO SCH ×2 (10:41→23:40)
[2020-04-24] MEDS: METOPROLOL TARTRATE 25 MG TAB PO SCH (10:44)
[2020-04-24] MEDS: MEMANTINE 10 MG TAB PO SCH ×2 (10:44→20:38)
[2020-04-24] MEDS: FINASTERIDE 5 MG TAB PO SCH (10:44)
[2020-04-24] MEDS: OLANZAPINE 5 MG TAB PO SCH ×2 (10:44→20:38)
--- NOTE | 2020-04-24 15:49 | Progress Note ---
DATE: SUBJECTIVE: The patient is afebrile. He still has intermittent confusion. PHYSICAL EXAMINATION: VITAL SIGNS: The patient's blood pressure is 118/71, saturation is 99%. The pulse is 67. HEENT: No facial swelling or erythema. LYMPHATIC: No submandibular, cervical, or supraclavicular adenopathy. NECK: No JVD or thyromegaly. There is no nuchal rigidity. CARDIAC: Regular rate and rhythm with normal S1, S2. LUNGS: Auscultation of lungs reveals rhonchorous breath sounds bilaterally. There is no wheezing. ABDOMEN: Soft, nontender. There is no rebound or guarding. EXTREMITIES: No leg edema or calf tenderness. There is no cyanosis or clubbing. LABORATORY DATA: White blood cell count is 4.4 and hemoglobin is 10.6. The platelet count is 165. The BUN to creatinine ratio is normal. The carbon dioxide is 19 and the chloride is 108. IMPRESSION: 1. Metabolic encephalopathy. 2. Coronavirus disease-19 and viral pneumonia. 3. Acute kidney injury. PLAN: 1. Continue sitter. 2. Discussed disposition with Dr. Bear and Case Management. Michael Mae MD [facility]/MODL /[id number]
--- NOTE | 2020-04-24 17:00 | NUR ---
pt combative . refused diner and [address] .
[2020-04-24] MEDS: ENOXAPARIN SOD INJ 40 MG/0.4 ML SYR SC SCH (17:48)
[2020-04-24] MEDS: HALOPERIDOL LACTATE 5 MG/ML VIAL IM PRN ×2 (17:48→23:40)
--- NOTE | 2020-04-24 17:55 | NUR ---
[facility] refused to accept pt . Dr Bear notified, dc order canceled
[2020-04-24 20:00] VITALS: BP 158/71
[2020-04-24] MEDS: DONEPEZIL HCL 5 MG TAB PO SCH (20:38)
[2020-04-25] VITALS: BP 124/83
--- NOTE | 2020-04-25 01:42 | Progress Note ---
DATE: 04/24/2020 Medicine Progress Note SUBJECTIVE: The patient is at his baseline. He was in the process of being discharged, but apparently the long term does not have his bed available? The patient will stay here overnight. PHYSICAL EXAMINATION: VITAL SIGNS: He is afebrile, normotensive. Respiratory rate is good. GENERAL: He is baseline demented. He is alert. He is awake. PULMONARY: Clear to auscultation bilaterally. No wheezing, rales, or rhonchi. No crackles appreciated. CARDIOVASCULAR: Positive S1, S2. No murmurs, rubs, or gallops appreciated. ABDOMEN: Soft, nondistended, and nontender to palpation. Bowel sounds present. MUSCULOSKELETAL: Unable to assess, noncooperative. NEUROLOGICAL: Unable to assess, noncooperative. LABORATORY DATA: Reviewed, stable. IMPRESSION: 1. Rhabdomyolysis, now resolved. 2. Dementia with behavioral disturbances. 3. History of seizures. 4. Benign prostatic hypertrophy. 5. Coronavirus pneumonia, asymptomatic. PLAN: At this time, continue same plan of care. There will be no changes. He is much more calm with antipsychotics given. Lovenox for DVT prophylaxis. The patient was supposed to be discharged today, but apparently there was some bedding issues at the facility and so the patient will stay here an additional night and possibly discharge tomorrow. MD BLNACA Fishman/IESHAL /[id number]
[2020-04-25 04:00] VITALS: BP 111/50
[2020-04-25] MEDS: HALOPERIDOL LACTATE 5 MG/ML VIAL IM PRN (06:28)
[2020-04-25 08:24] VITALS: BP 134/74
[2020-04-25 08:30] VITALS: BP 134/74
--- NOTE | 2020-04-25 08:47 | NUR ---
RECEIVED CALL FROM CORNELIO SANON FROM THE [facility] AFTER HOURS; STATING [facility] REFUSED TO ACCEPT THE PT BACK. CALL TO KEVIN ROSARIO TO DISCUSS ALTERNATIVES. STATES SHE SPOKE W [facility] YESTERDAY AND THE PT WAS TO RETURN. STATES SHE WILL CALL TO SEE IF WE CAN SKILL THE PT TODAY.
--- NOTE | 2020-04-25 09:27 | NUR ---
CALLED DAUGHTER HUNTER, LET HER KNOW ABOUT [facility] REFUSAL, SHE WILL CALL AND HAVE A CONVERSATION WITH THE FACILITY SINCE THEY REFUSED TO TAKE THEIR PT BACK. LET HER KNOW I COULD TRY FOR A SNF, BUT NOT CERTAIN IF CAN MEET CRITERIA. LET HER KNOW ABOUT [facility] AND [facility] [place]. BOTH ACCEPTING POSITIVE BUILDINGS. SHE CHOSE [facility], COMPLETED CHOICE, EDUCATED ABOUT IMM, FILED IN CHART AND FAXED CLINICALS AND RTF TO [facility]. WILL UPDATE DAUGHTER AND STAFF WHEN ABLE TO GET MORE INFORMATION. Addendum: 04/25/20 at 0930 by Marta Black CM [facility] IS IN [place] FOR [facility]. DAUGHTER CONSENTED TO [place].
[2020-04-25] MEDS: LEVETIRACETAM 500 MG TAB PO SCH (10:10)
[2020-04-25] MEDS: METOPROLOL TARTRATE 25 MG TAB PO SCH (10:11)
[2020-04-25] MEDS: OLANZAPINE 5 MG TAB PO SCH (10:11)
[2020-04-25] MEDS: FINASTERIDE 5 MG TAB PO SCH (10:11)
[2020-04-25] MEDS: MEMANTINE 10 MG TAB PO SCH (10:11)
--- NOTE | 2020-04-25 10:21 | NUR ---
[facility] CALLED AND WILL NOW TAKE PT BACK, CANCELLED SNF, CALLED DAUGHTER AND SET UP TRANSPORT FOR PT TO RETURN TO [facility]AC[facility]. CALLED DOCTOR AND FACILITATED CALL TO NURSE TO DISCHARGE.
[2020-04-25] MEDS ORDERED: ONDANSETRON HCL 4 MG ORAL DISINTEGRATING TAB PO PRN (13:15)
--- NOTE | 2020-04-26 01:47 | Discharge Summary ---
FINAL DISCHARGE DIAGNOSES: 1. Rhabdomyolysis. 2. Dementia with behavioral disturbances. 3. History of seizures. 4. Benign prostatic hyperplasia. 5. Coronavirus pneumonia, asymptomatic. CONSULTANTS: ID and Pulmonary. PHYSICAL EXAMINATION: VITAL SIGNS: Temperature is 98.8, pulse is 79, respiratory rate is 22, blood pressure is 134/74. He was on room air 98%. LABORATORY DATA: Show white count 4.4, hemoglobin 10.6, hematocrit 32.5, platelets was 165. Chemistry; sodium 137, potassium 3.6, chloride 108, bicarb 19, anion gap of 13, BUN is 15, creatinine is 0.79, glucose is 85, calcium is 8.8. CK 588. Troponins were all negative. Albumin 2.6. LFTs are noted. Urinalysis negative. Coronavirus was positive. MICROBIOLOGY: None. IMAGING STUDIES: CT of the chest shows mild left basilar atelectasis. Otherwise, no lung consolidation. Severe atherosclerotic calcification of the coronary arteries. CT brain shows no acute intracranial finding. Chronic microvascular ischemic change and volume loss. Hip x-ray; no evidence of acute displaced fracture or dislocation of the bilateral hips. HOSPITAL COURSE: An 84-year-old male with baseline dementia with behavioral disturbances, comes in after he was found on the ground after he rolled out of his bed. He was found to have rhabdomyolysis, treated accordingly with IV fluids. He was found to have coronavirus positive while here in the hospital stay. He was asymptomatic. He had no fever, cough, or congestion. He was transferred to the COVID Unit. ID and Pulmonary Critical Care were following. From a coronavirus standpoint, the patient was doing very well. In fact, he was on room air and he was asymptomatic. He was found to have a possible underlying urinary tract infection that was treated accordingly with IV antibiotics. I spoke with ID. The patient has asymptomatic bacteriuria and recommended no antibiotics on discharge. As for his rhabdomyolysis, he continued with IV fluids with CK improving tremendously. The patient was cleared for discharge by all consultants. The patient was back to normal baseline. On the day of discharge, vital signs were stable. Labs reviewed and stable. The patient was seen, evaluated, and examined thoroughly on the day of discharge. No other complaints. The patient verbalized understanding and agrees to plan of care to follow up accordingly as an outpatient with primary care physician in 1 week. MEDICATIONS: See med reconciliation form. DISPOSITION: Back to the [facility]. CONDITION: Stable. DIET: Heart healthy. In the event of any worsening symptoms, the patient was advised to come back to the ED for further evaluation. Discharge summary took greater than 35 minutes. MD BLANCA Fishman/MODL /[id number]
--- NOTE | 2020-04-26 08:38 | Progress Note ---
DATE: 04/25/2020 Psychiatric Progress Note SUBJECTIVE: The patient evaluated and events noted. The patient is in isolation for COVID. He is calm, not agitated. He is intermittently getting p.r.n. IM medication as per nurse for trying to get out of the bed and agitated. He has a discharge order to go home. He is confused as per nurse, not answering lot of questions. No side effects reported. ASSESSMENT: 1. Unspecified psychosis. 2. Unspecified dementia with behavior disturbances. PLAN: 1. Continue with Aricept. 2. Continue with Haldol. 3. Continue with p.r.n. Ativan. 4. Continue with Zyprexa. 5. Continue with Namenda. Dictated by Nicole Cerda PA-C Freya Anders MD QTV/MODL /[id number]
== END 2020-04-25 11:15 | DRG 177 ==
LOC: ER 21:13 → ERHOLD 23:10 → MED/SURG3 04-19 04:18 → OBSVTOIN 04-20 08:17 → IMCU 04-20 21:47
PROVIDERS: ADMIT Internal Medicine; ATTEND Internal Medicine
DX: U07.1 COVID-19 (principal); G93.41 Metabolic encephalopathy; J12.89 Other viral pneumonia; N18.6 End stage renal disease; N17.9 Acute kidney failure, unspecified; M62.82 Rhabdomyolysis; N39.0 Urinary tract infection, site not specified; F02.81 Dementia in other diseases classified elsewhere, unspecified severity, with behavioral disturbance; I12.0 Hypertensive chronic kidney disease with stage 5 chronic kidney disease or end stage renal disease; G40.901 Epilepsy, unspecified, not intractable, with status epilepticus; N40.0 Benign prostatic hyperplasia without lower urinary tract symptoms; F29 Unspecified psychosis not due to a substance or known physiological condition; W19.XXXA Unspecified fall, initial encounter; E86.0 Dehydration; G30.9 Alzheimer's disease, unspecified; Z99.2 Dependence on renal dialysis; D63.1 Anemia in chronic kidney disease
CPT/HCPCS: 36415; 70450; 71250; 73521; 80048; 80053; 81001; 82550; 82553; 82948; 84484; 85025; 85610; 86850; 86900; 96360; 96361; 99284; G0378; J1630; J1650; J2060; J7030; U0002